=== PATIENT | female | born 1990 ===

== ENCOUNTER → 2017-02-22 | Outpatient (CLI) | payer OTHER | LOC: FIMAGING 11:43 | PROVIDERS: ATTEND Physician Assistant | DX: M79.675 Pain in left toe(s) (principal) ==

== ENCOUNTER 2017-04-18 20:32 | Emergency (ER) | payer OTHER ==
[2017-04-18 20:36] VITALS: RESP 16; TEMP 98.1
--- NOTE | 2017-04-18 23:13 | EDPHY ---
H & P Stated Complaint: R leg feels "strange", worried about blood clot Time Seen by Provider: 04/18/17 22:57 HPI/ROS: CHIEF COMPLAINT: Right calf pain HISTORY OF PRESENT ILLNESS: This is a 26-year-old female presenting to the emergency department complaining of right calf pain, swelling with intermittent tingling x2 days. Patient denies any injury, mother has a history of DVTs. Denies any shortness of breath or chest pain REVIEW OF SYSTEMS: Constitutional: No fever, no chills. Eyes: No blurred vision ENT: No sore throat. Cardiovascular: No chest pain, no palpitations. Respiratory: No cough, no shortness of breath. Gastrointestinal: No abdominal pain, no vomiting. Genitourinary: No difficulty urinating Musculoskeletal: No back pain. Right calf pain with swelling Skin: No rashes. Neurological: No headache. Source: Patient - Personal History LMP (Females 10-55): IUD In Place Current Tetanus/Diphtheria Vaccine: Yes Current Tetanus Diphtheria and Acellular Pertussis (TDAP): Yes - Medical/Surgical History Hx Asthma: No Hx Chronic Respiratory Disease: No Hx Diabetes: No Hx Cardiac Disease: No Hx Renal Disease: No Hx Cirrhosis: No Hx Alcoholism: No Hx HIV/AIDS: No Hx Splenectomy or Spleen Trauma: No Other PMH: denies - Social History Smoking Status: Never smoked - Physical Exam Exam: General Appearance: Alert, no distress. Eyes: Pupils equal and round no pallor or injection. ENT, Mouth: Mucous membranes moist. Respiratory: There are no retractions, lungs are clear to auscultation. Cardiovascular: Regular rate and rhythm. Gastrointestinal: Abdomen is soft and nontender, no mass Neurological: No focal deficits Skin: Warm and dry, no rashes. Musculoskeletal: Neck is supple nontender. Right calf tenderness on palpation measures 39 cm, left calf measures 38 cm. Positive CMS intact Extremities: symmetrical, full range of motion. Psychiatric: Patient is oriented X 3, there is no agitation. Constitutional: Initial Vital Signs Temperature (C) 36.7 C 04/18/17 20:34 Heart Rate 86 04/18/17 20:34 Respiratory Rate 16 04/18/17 20:34 Blood Pressure 140/78 H 04/18/17 20:34 O2 Sat (%) 95 04/18/17 20:34 O2 Delivery Mode Room Air Allergies/Adverse Reactions: Sulfa (Sulfonamide Antibiotics) Allergy (Verified 04/18/17 20:34) Home Medications: Medication Instructions Recorded MIRENA 04/18/17 Medical Decision Making - Diagnostics Imaging Results: Imaging Impressions Extremity Venous Study 04/18/17 23:10 Impression: Negative. No deep venous thrombosis. Findings discussed with Emergency Department, Gerda Silva NP at 04/18/2017 23 :51. ED Course/Re-evaluation: Discussed the plan of care: CBC, BMP, ultrasound lower extremity 2350: Spoke with Dr. Cates ultrasound negative for any clots 0025: Discussed negative ultrasound results with patient, patient reports a dull ache to right lower extremity feeling better. Discharge home---> stable, discussed discharge instructions with patient Differential Diagnosis: Other differential diagnosis considered but not limited to DVT, ligamentous injury and clemons cyst - Data Points Laboratory Results: Laboratory Results 04/18/17 23:22 04/18/17 23:22 04/18/17 04/18/17 04/18/17 23:22 23:22 23:22 WBC 8.38 10^3/uL 10^3/uL (3.80-9.50) RBC 4.74 10^6/uL 10^6/uL (4.18-5.33) Hgb 14.3 g/dL g/dL (12.6-16.3) Hct 42.9 % % (38.0-47.0) MCV 90.5 fL fL (81.5-99.8) MCH 30.2 pg pg (27.9-34.1) MCHC 33.3 g/dL g/dL (32.4-36.7) RDW 12.5 % % (11.5-15.2) Plt Count 302 10^3/uL 10^3/uL (150-400) MPV 9.9 fL fL (8.7-11.7) Neut % (Auto) 47.4 % % (39.3-74.2) Lymph % (Auto) 40.2 % % (15.0-45.0) Alexander % (Auto) 8.4 % % (4.5-13.0) Eos % (Auto) 3.1 % % (0.6-7.6) Baso % (Auto) 0.5 % % (0.3-1.7) Nucleat RBC Rel Count 0.0 % % (0.0-0.2) Absolute Neuts (auto) 3.98 10^3/uL 10^3/uL (1.70-6.50) Absolute Lymphs (auto) 3.37 10^3/uL H 10^3/uL (1.00-3.00) Absolute Monos (auto) 0.70 10^3/uL 10^3/uL (0.30-0.80) Absolute Eos (auto) 0.26 10^3/uL 10^3/uL (0.03-0.40) Absolute Basos (auto) 0.04 10^3/uL 10^3/uL (0.02-0.10) Absolute Nucleated RBC 0.00 10^3/uL 10^3/uL (0-0.01) Immature Gran % 0.4 % % (0.0-1.1) Immature Gran # 0.03 10^3/uL 10^3/uL (0.00-0.10) Sodium 139 mEq/L mEq/L (134-144) Potassium 4.0 mEq/L mEq/L (3.5-5.2) Chloride 106 mEq/L mEq/L (97-110) Carbon Dioxide 23 mEq/l mEq/l (22-31) Anion Gap 10 mEq/L mEq/L (8-16) BUN 12 mg/dL mg/dL (7-23) Creatinine 0.6 mg/dL mg/dL (0.6-1.0) Estimated GFR > 60 Glucose 85 mg/dL mg/dL (70-100) Calcium 9.5 mg/dL mg/dL (8.5-10.4) Beta HCG, Qual NEGATIVE Departure - Departure Disposition: Home, Routine, Self-Care Clinical Impression: Leg pain, right Condition: Good Instructions: Leg Pain (ED) Additional Instructions: Discussed discharge instructions 1. Decreased prolonged in strenuous activity on right lower extremity 2. Ibuprofen 600 mg every 6-8 hours as needed 3. Your ultrasound was negative to rule out any blood clots 4. Follow up with your primary care provider this week 5. If any symptoms worsen such as: Increased pain, calf swelling unable to bear weight return to the ER Referrals: AYSE SANCHEZ [Primary Care Provider] - As per Instructions
[2017-04-18 23:35] LABS: % IMMATURE GRANULYOCYTES 0.4 % (0.0-1.1); ABSOLUTE IMMATURE GRANULOCYTES 0.03 10^3/uL (0.00-0.10); ADD DIFF? NO; ADD MORPH? NO; ADD SCAN? NO; ATYPICAL LYMPHOCYTE FLAG 10 (0-99); FRAGMENT RBC FLAG 0 (0-99); HEMATOCRIT 42.9 % (38.0-47.0); HEMOGLOBIN 14.3 g/dL (12.6-16.3); LEFT SHIFT FLG 0 (0-99); LIPEMIA HEMOLYSIS FLAG 80 (0-99); MEAN CELL HEMOGLOBIN 30.2 pg (27.9-34.1); MEAN CELL HEMOGLOBIN CONCENTR. 33.3 g/dL (32.4-36.7); MEAN CELL VOLUME 90.5 fL (81.5-99.8); MEAN PLATELET VOLUME 9.9 fL (8.7-11.7); PLATELET CLUMPS FLAG 0 (0-99); PLATELET COUNT 302 10^3/uL (150-400); RED BLOOD CELL COUNT 4.74 10^6/uL (4.18-5.33); RED CELL DISTRIBUTION WIDTH 12.5 % (11.5-15.2)
[2017-04-18 23:48] LABS: ANION GAP 10 mEq/L (8-16); CALCIUM 9.5 mg/dL (8.5-10.4); CARBON DIOXIDE 23 mEq/l (22-31); CHLORIDE 106 mEq/L (97-110); CREATININE 0.6 mg/dL (0.6-1.0); GLOMERULAR FILTRATION RATE > 60; GLUCOSE 85 mg/dL (70-100); SODIUM 139 mEq/L (134-144)
[2017-04-19 01:55] VITALS: BP 131/64; PULSE 76; O2SAT 97
== END 2017-04-19 00:36 | disposition home or self-care (01) ==
DX: M79.661 Pain in right lower leg (principal)